=== PATIENT | female | born 1960 | race Caucasian/White ===

== ENCOUNTER → 2017-03-08 | Outpatient (CLI) | payer SELFPAY ==
--- NOTE | 2017-03-14 16:40 | MG ---
HISTORY: SCREENING Comparison: 03/08/2016 FINDINGS: Bilateral CC and MLO projections of the right and left breast were obtained. Dense fibroglandular ti ssue is seen to be present. No significant architectural distortion, mass or clustered microcalcific ations can be observed to suggest malignancy. No skin thickening or nipple retraction is appreciated . No pathological lymphadenopathy can be identified. A biopsy clip is again seen in the left inferi or breast. IMPRESSION: NO RADIOGRAPHIC EVIDENCE OF MALIGNANCY. ACR CATEGORY 2 - benign findings. FOLLOW-UP EXAM 1 YEAR. Diagnostic CAD was utilized and reviewed. * 0 (ZERO) - ASSESSMENT INCOMPLETE; ADDITIONAL IMAGING IS NEEDED. * 1/ (ONE) - NEGATIVE. * 2/II (TWO) - BENIGN FINDINGS. * 3/III (THREE) - PROBABLY BENIGN FINDING; SHORT INTERVAL FOLLOW-UP SUGGESTED. * 4/IV (FOUR) - SUSPICIOUS ABNORMALITY; BIOPSY SHOULD BE CONSIDERED. * 5/V - HIGHLY SUSPICIOUS OF MALIGNANCY; BIOPSY SHOULD BE PERFORMED. A NEGATIVE X-RAY REPORT SHOULD NOT DELAY BIOPSY IF A DOMINANT OR CLINICALLY SUSPICIOUS MASS IS PRESENT; 4 TO 8 PERCENT OF CANCERS ARE NOT IDENTIFIED BY X-RAY. A NEGA TIVE REPORT MAY REINFORCE THE CLINICAL IMPRESSION. ADENOSIS AND DENSE BREASTS MAY OBSCURE AN UNDERLY ING NEOPLASM. Reported By:
== END ==
LOC: RAD 08:53
PROVIDERS: ATTEND Specialist
DX: Z12.31 Encounter for screening mammogram for malignant neoplasm of breast (principal)
CPT/HCPCS: 77067

== ENCOUNTER 2019-01-31 20:37 | Observation (INO) ==
[2019-01-31] MEDS ORDERED: ZOFRAN INJ 4 MG VIAL IVP ONE (21:46)
[2019-01-31] MEDS ORDERED: DILAUDID INJ IVP ONE (21:49)
--- NOTE | 2019-01-31 22:01 | ED.ABDFE ---
HPI Time Seen Time Seen by Provider: 01/31/19 21:42 PCP Primary Care Physician: DR.DONNA FOURNIER Complaint Doctors Chief Complaint Comments: A 58 y/o female presenting with c/o RLQ abdominal pain onset since about 1830 hrs. this evening. "It hurts" is how she characterizes it. The pain has been constant since then, with no radiation. She has nausea but no vomiting. She has no fever. There is no exacerbating or relieving factors. Chief Complaint:: PT STATED SHE IS HAVING RIGHTSIDED ABDOMINAL PAIN AND NAUSEA. Reviewed Nurses Notes Review: Yes Source History Provided: Patient Mode of arrival Mode of Arrival: Wheelchair Timing Onset of Chief Complaint: 01/31/19 Came on: Gradually Duration Since Onset: Constant How lon Duration: Hours Location Location: RLQ Severity Severity: Severe Context History of: Abdominal surgery Modifying factors Worsening Factors: Nothing Improving Factors: Nothing Associated signs and symptoms Associated Signs and Symptoms: Nausea PMH PMH Past Medical History: No Past Surgical History: Yes Past Surgical History Comment: RIGHT INQUINAL HERNIA AND TUBLIGATION Family History History of Family Medical Conditions: No Social History Does patient currently use any type of tobacco product: No Have you used tobacco products in the last 12 months: No Type of Tobacco Use: None Does any household member use tobacco: No Alcohol Use: None Do you use any recreational Drugs:: No Lives With: Spouse Lives Where: Home infectious screening In the last 2 months have you had wt loss of >10#?: NO Have you had fever, night sweats or hemotysis?: No Have you traveled outside the country in the last 6 months?: No Isolation: Standard ROS Review of Systems Constitutional: No Symptoms Reported Eyes: No Symptoms Reported ENTM: No Symptoms Reported Respiratoy: No Symptoms Reported Cardiovascular: No Symptoms Reported Gastrointestinal/Abdominal: Abdominal Pain and Nausea Genitourinary: No Symptoms Reported Neurological: No Symptoms Reported Musculoskeletal: No Symptoms Reported Integumentary: No Symptoms Reported Hematologic/Lymphatic: No Symptoms Reported Endocrine: No Symptoms Reported Psychiatric: No Symptoms Reported PE Vital Signs Vitals: Temperature 97.7 F Pulse Rate 70 Respiratory Rate 18 Blood Pressure [Left Arm] 109/55 Blood Pressure 98/51 O2 Sat by Pulse Oximetry 99 General Limitations: No Limitations General Appearance: Alert and In Distress (pain related) Head Head Exam: Normal Inspection, Atraumatic and Normocephalic Eyes Eye exam: Normal Appearance and EOMI ENT ENT Exam: Normal Exam, Normal Oropharynx and Mucous Membranes Moist Neck Neck Exam: Normal Inspection, Full ROM and Trachea Midline Chest Chest Inspection: Normal Inspection and Symmetric Chest Wall Rise Respiratory Respiratory Exam: Normal Lung Sounds Bilat Cardiovascular Cardiovascular Exam: Regular Rate, Normal Rhythm, Normal Heart Sounds, +S1 and +S2 Abdominal Exam Abdominal Exam: Normal Inspection, Normal Bowel Sounds, Soft and Tenderness; negative Distention, Guarding, Rebound, Rigidity, Dimnished Bowel Sounds, Hyperactive Bowel Sounds, Hypoactive Bowel Sounds, Organomegaly, Trauma, Incision, Ascites, Mass, Bruit, Pulsatile Mass and Hernia Abdominal Tenderness: RLQ Rectal Rectal Exam: Deferred Back Back Exam: Normal Inspection Extremeties Extremities Exam: Normal Inspection and Full ROM External Exam: Female: Deferred Neurologic Neurological Exam: Alert and Oriented X3 Psychiatric Psychiatric Exam: Normal Affect and Normal Mood Skin Skin Exam: Dry and Normal Color MDM Differential Diagnosis Differential Diagnosis- Considerations may include:: Appendicitis, Inflammatory BD and Ovarian cyst/torsion COURSE Reevaluation 1st: Improved 2nd: Improved Education/Counseling Education/Counseling: Patient, Family, Education and Counseling Educated On: Treatment, Diagnosis, Prognosis and Needs for Follow Up ROR Labs Reviewed Laboratory Results Reviewed?: Yes Result Diagrams: 01/31/19 22:02 01/31/19 22:02 Laboratory: WBC 10.2 X10^3/uL (3.6-10.0) H 01/31/19 22:02 RBC 4.45 X10^6/uL (3.5-5.4) 01/31/19 22:02 Hgb 13.8 g/dL (12.0-16.0) 01/31/19 22:02 Hct 39.2 % (36.0-47.0) 01/31/19 22:02 MCV 88.1 fL (80.0-100.0) 01/31/19 22:02 MCH 30.9 pg (27.0-34.0) 01/31/19 22:02 MCHC 35.1 g/dL (33.0-35.0) H 01/31/19 22:02 RDW 12.7 % (11.6-16.5) 01/31/19 22:02 Plt Count 155 X10^3/uL (150.0-450.0) 01/31/19 22:02 Plt Count Comment Adequate (ADEQUATE) 01/31/19 22:02 MPV 7.8 fL (7.4-11.0) 01/31/19 22:02 Neut % (Auto) 90.6 % (42.0-75.0) H 01/31/19 22:02 Lymph % (Auto) 4.5 % (21.0-51.0) L 01/31/19 22:02 [place] % (Auto) 4.4 % (0.0-13.0) 01/31/19 22:02 Eos % (Auto) 0.1 % (0.9-2.9) L 01/31/19 22:02 Baso % (Auto) 0.4 % (0.2-1.0) 01/31/19 22:02 Neut # (Auto) 9.2 x10^3/uL (2.2-4.8) H 01/31/19 22:02 Lymph # (Auto) 0.5 X10^3/uL (1.3-2.9) L 01/31/19 22:02 [place] # (Auto) 0.4 x10^3/uL (0.3-0.8) 01/31/19 22:02 Eos # (Auto) 0.0 x10^3/uL (0.0-0.2) 01/31/19 22:02 Baso # (Auto) 0.0 X10^3/uL (0.0-0.1) 01/31/19 22:02 Absolute Nucleated RBC 0.0 /100WBC 01/31/19 22:02 Total Counted 100 01/31/19 22:02 Neutrophils % (Manual) 84 % (39-76) H 01/31/19 22:02 Band Neutrophils % 7 % (0-10) 01/31/19 22:02 Lymphocytes % (Manual) 4 % (13-43) L 01/31/19 22:02 Monocytes % (Manual) 4 % (4-9) 01/31/19 22:02 Metamyelocytes % 1 01/31/19 22:02 Plt Morphology Comment Normal (NORMAL) 01/31/19 22:02 RBC Morphology Normal (NORMAL) 01/31/19 22:02 Sodium 142 mmol/L (136-145) 01/31/19 22:02 Corrected Sodium 142 mmol/L (136-145) 01/31/19 22:02 Potassium 3.6 mmol/L (3.5-5.1) 01/31/19 22:02 Chloride 106 mmol/L (98-107) 01/31/19 22:02 Carbon Dioxide 27.8 mmol/L (21-32) 01/31/19 22:02 BUN 17 mg/dL (7-18) 01/31/19 22:02 Creatinine 0.94 mg/dL (0.55-1.02) 01/31/19 22:02 Est GFR (MDRD) Af Amer > 60 (>60) 01/31/19 22:02 Est GFR (MDRD) Non-Af > 60 (>60) 01/31/19 22:02 Glucose 120 mg/dL (65-99) H 01/31/19 22:02 Calcium 8.5 mg/dL (8.5-10.1) 01/31/19 22:02 Corrected Calcium TNP 01/31/19 22:02 Total Bilirubin 0.50 mg/dL (0.2-1.0) 01/31/19 22:02 AST 19 Units/L (15-37) 01/31/19 22:02 ALT 26 Units/L (12-78) 01/31/19 22:02 Alkaline Phosphatase 74 Units/L (46-116) 01/31/19 22:02 Total Protein 7.0 g/dL (6.4-8.2) 01/31/19 22:02 Albumin 4.2 g/dL (3.4-5.0) 01/31/19 22:02 Globulin 2.8 g/dL (2.5-4.5) 01/31/19 22:02 Albumin/Globulin Ratio 1.5 Ratio (1.1-2.1) 01/31/19 22:02 XRAY XRAY Interpreted by: Radiologist XRAY Findings: Abd./Pelvic CT Scan: Acute appendicitis. Opioid Opioid Risk Tool Total: 0 Total Score Risk Category: Low Risk Copyright: Gurmeet ZAPIEN predicting aberrant behaviors Diagnosis Discharge Problem: Acute appendicitis Qualifiers: Acute appendicitis type: with localized peritonitis Appendicitis gangrene presence: unspecified whether gangrene present Appendicitis perforation presence: without perforation Appendicitis abscess presence: without abscess Qualified Code(s): K35.30 - Acute appendicitis with localized peritonitis, without perforation or gangrene Instructions Forms: Excuse From Work
[2019-01-31 22:09] LABS: BASOPHILS % (AUTO) 0.4 % (0.2-1.0); EOSINOPHILS % (AUTO) 0.1 % (0.9-2.9); HEMATOCRIT 39.2 % (36.0-47.0); HEMOGLOBIN 13.8 g/dL (12.0-16.0); LYMPHOCYTES # (AUTO) 0.5 X10^3/uL (1.3-2.9); LYMPHOCYTES % (AUTO) 4.5 % (21.0-51.0); MEAN CORPUSCULAR HEMOGLOBIN 30.9 pg (27.0-34.0); MEAN CORPUSCULAR HGB CONC 35.1 g/dL (33.0-35.0); MEAN CORPUSCULAR VOLUME 88.1 fL (80.0-100.0); MEAN PLATELET VOLUME 7.8 fL (7.4-11.0); MONOCYTES # (AUTO) 0.4 x10^3/uL (0.3-0.8); MONOCYTES % (AUTO) 4.4 % (0.0-13.0); NEUTROPHILS # (AUTO) 9.2 x10^3/uL (2.2-4.8); NEUTROPHILS % (AUTO) 90.6 % (42.0-75.0); PLATELET COUNT 155 X10^3/uL (150.0-450.0); RED BLOOD COUNT 4.45 X10^6/uL (3.5-5.4); RED CELL DISTRIBUTION WIDTH 12.7 % (11.6-16.5); WHITE BLOOD COUNT 10.2 X10^3/uL (3.6-10.0)
[2019-01-31 22:27] LABS: ALANINE AMINOTRANSFERASE 26 Units/L (12-78); ALBUMIN 4.2 g/dL (3.4-5.0); ALKALINE PHOSPHATASE 74 Units/L (46-116); ASPARTATE AMINO TRANSFERASE 19 Units/L (15-37); BLOOD UREA NITROGEN 17 mg/dL (7-18); CALCIUM 8.5 mg/dL (8.5-10.1); CARBON DIOXIDE 27.8 mmol/L (21-32); CHLORIDE 106 mmol/L (98-107); COR NA(FOR HYPERGLY) 142 mmol/L (136-145); CREATININE 0.94 mg/dL (0.55-1.02); SODIUM 142 mmol/L (136-145); eGFR NON BLACK RACES > 60 (>60)
[2019-01-31 22:31] LABS: BAND NEUTROPHILS % 7 % (0-10); METAMYELOCYTES % 1
[2019-01-31 22:32] LABS: PLATELET MORPHOLOGY COMMENT NORMAL (NORMAL)
--- NOTE | 2019-02-01 01:25 | CT ---
HISTORY: Pain and nausea Study: CT abdomen and pelvis with contrast Comparison: None Technique: Multiple axial images of the abdomen and pelvis were obtained from the lung bases to the pubic symphysis following the administration of IV contrast. Coronal and sagittal reformations were obtained. Findings: Visualized lung bases are clear. Liver, pancreas, spleen, and adrenals are unremarkable. Gallbladder is unremarkable. Kidneys enhance symmetrically. No evidence of obstructive uropathy. Urinary bladder is unremarkable. Small bowel and colon demonstrate no evidence of mechanical obstruction or inflammation. The appendix is dilated with periappendiceal fat stranding, compatible with appendicitis. No evidence of intraperitoneal free air. No free fluid or focal fluid collection. No acute osseous findings. IMPRESSION: Acute uncomplicated appendicitis. Findings were discussed with Dr. Navarro by phone on 02/01/19 at 1:23 am. Reported By:
[2019-02-01] MEDS ORDERED: DILAUDID INJ IVP PRN ×2 (02:17→10:44)
[2019-02-01] MEDS ORDERED: TYLENOL 325 MG TAB PO PRN (02:17)
[2019-02-01] MEDS ORDERED: ZOFRAN INJ 4 MG VIAL IVP PRN ×2 (02:17→10:44)
[2019-02-01 02:50] VITALS: BMI 29.3
[2019-02-01] MEDS ORDERED: ZOSYN VIAL 2.25 GRAMS IV ONE (02:57)
[2019-02-01] MEDS ORDERED: LR 1000 ML IV 1,000 ML ONE ×3 (02:57→09:22)
[2019-02-01] MEDS ORDERED: NS 100 ML IV + SPIKE MINIBAG* 100 ML ONE (02:58)
[2019-02-01] MEDS: LR 1000 ML IV 1,000 ML IV SCH ×2 (03:06→17:11)
[2019-02-01] MEDS ORDERED: DILAUDID INJ ONE (03:25)
[2019-02-01] MEDS: ZOSYN VIAL 2.25 GRAMS 2.25 G in NS 100 ML IV + SPIKE MINIBAG* 100 ML IV SCH ×3 (05:23→21:58)
[2019-02-01 06:40] LABS: BASOPHILS % (AUTO) 0.2 % (0.2-1.0); HEMATOCRIT 36.4 % (36.0-47.0); HEMOGLOBIN 12.9 g/dL (12.0-16.0); LYMPHOCYTES # (AUTO) 1.1 X10^3/uL (1.3-2.9); LYMPHOCYTES % (AUTO) 11.2 % (21.0-51.0); MEAN CORPUSCULAR HEMOGLOBIN 31.2 pg (27.0-34.0); MEAN CORPUSCULAR HGB CONC 35.3 g/dL (33.0-35.0); MEAN CORPUSCULAR VOLUME 88.4 fL (80.0-100.0); MEAN PLATELET VOLUME 8.2 fL (7.4-11.0); MONOCYTES # (AUTO) 0.5 x10^3/uL (0.3-0.8); MONOCYTES % (AUTO) 5.1 % (0.0-13.0); NEUTROPHILS # (AUTO) 7.9 x10^3/uL (2.2-4.8); NEUTROPHILS % (AUTO) 83.5 % (42.0-75.0); PLATELET COUNT 149 X10^3/uL (150.0-450.0); RED BLOOD COUNT 4.12 X10^6/uL (3.5-5.4); RED CELL DISTRIBUTION WIDTH 12.6 % (11.6-16.5); WHITE BLOOD COUNT 9.5 X10^3/uL (3.6-10.0)
[2019-02-01 06:52] LABS: ALANINE AMINOTRANSFERASE 21 Units/L (12-78); ALBUMIN 3.6 g/dL (3.4-5.0); ALKALINE PHOSPHATASE 61 Units/L (46-116); ASPARTATE AMINO TRANSFERASE 15 Units/L (15-37); BLOOD UREA NITROGEN 13 mg/dL (7-18); CALCIUM 8.1 mg/dL (8.5-10.1); CARBON DIOXIDE 25.6 mmol/L (21-32); CHLORIDE 105 mmol/L (98-107); COR NA(FOR HYPERGLY) 139 mmol/L (136-145); CREATININE 0.85 mg/dL (0.55-1.02); SODIUM 139 mmol/L (136-145); TOTAL PROTEIN 6.4 g/dL (6.4-8.2); eGFR NON BLACK RACES > 60 (>60)
[2019-02-01 08:22] LABS: BILIRUBIN,URINE NEGATIVE (NEGATIVE); BLOOD/HEMOGLOBIN,URINE NEGATIVE (NEGATIVE); GLUCOSE, URINE NEGATIVE (NEGATIVE); KETONES,URINE NEGATIVE (NEGATIVE); LEUKOCYTE ESTERASE ,URINE NEGATIVE (NEGATIVE); NITRITES,URINE NEGATIVE (NEGATIVE); PROTEIN,URINE 2+ (NEGATIVE); UROBILINOGEN,URINE NORMAL (NORMAL)
[2019-02-01 08:29] LABS: APPEARANCE,URINE CLEAR (CLEAR); COLOR,URINE YELLOW (YELLOW)
--- NOTE | 2019-02-01 08:29 | DR.H&P ---
H&P - History & Physical for Day of: H&P Date: 02/01/19 - Chief Complaint Chief Complaint: RIGHT SIDE ABDOMINAL PAIN, N/V - History of Present Illness History of Present Illness: 58 WF ER ADMISSION AFTER PRESENTING WITH CO RLQ abdominal pain onset since about 1830 hrs. this evening. "It hurts" is how she characterizes it. The pain has been constant since then, with no radiation. She has nausea but no vomiting. She has no fever. There is no exacerbating or relieving factors. PT DENIES ANY PMH OF HTN, CAD OR COPD. PT STATES SHE HAS NO HOME MEDICATIONS. PT WAS ADMITTED NPO, IV ZOSYN, SURGICAL CONSULTATION. - Past Medical History Past Medical History: denies: CHF, COPD, Coronary Artery Disease, Diabetes, Dyslipidemia, GERD, Hypertension - Past Surgical History Surgical History: Abdominal Surgery - Social History Does patient currently use any type of tobacco product: No Have you used tobacco products in the last 12 months: No Type of Tobacco Use: None Does any household member use tobacco: No Alcohol Use: None Drug Use: None - Medications Home Medications: No Known Drug Allergies Allergy (Verified 02/01/19 01:33) CONTINUE taking the following medications NK 02/01/19 [History] - Review of Systems Constitutional: Weakness Eyes: No Symptoms Reported ENT: No Symptoms Reported Respiratory: No Symptoms Reported Cardiovascular: No Symptoms Reported Gastrointestinal: Nausea, Vomiting, Abdominal Pain Genitourinary: No Symptoms Reported Musculoskeletal: No Symptoms Reported Skin: No Symptoms Reported Neurological: No Symptoms Reported - Physical Exam Vital Signs: Temperature 100.9 F Pulse Rate [Left] 90 Pulse Rate 70 Respiratory Rate 18 Blood Pressure [Left Arm] 109/54 Blood Pressure 98/51 O2 Sat by Pulse Oximetry 94 Oriented: Normal Eyes: Normal Ear: Normal Nose: Normal Throat: Normal Respiratory: Clear Throughout Cardiovascular: Normal : Normal Auscultation: Bowel Sounds: Normal Tenderness: RLQ, Periumbilical, Moderate, Rebound Skin: Normal Musculoskeletal: Normal Psychiatric: Normal Mood Description: Calm Speech Pattern: Appropriate - Assessment/Plan (1) Acute appendicitis Qualifiers: Acute appendicitis type: with localized peritonitis Appendicitis gangrene presence: unspecified whether gangrene present Appendicitis perforation presence: without perforation Appendicitis abscess presence: without abscess Qualified Code(s): K35.30 - Acute appendicitis with localized peritonitis, without perforation or gangrene Status: Acute Plan: ADMIT, NPO, IV HYDRATION. IV ZOSYN, PAIN AND NAUSEA CONTROL. SURGICAL CONSULTATION - Allergies Allergies/Adverse Reactions: Allergies Allergy/AdvReac Type Severity Reaction Status Date / Time No Known Drug Allergies Allergy Verified 02/01/19 01:33
[2019-02-01 08:30] LABS: BACTERIA,URINE NEGATIVE /HPF (NEGATIVE); RBC,URINE NONE SEEN /HPF (0-3); SQUAMOUS EPITHELIAL CELL,UR FEW /HPF (NEGATIVE)
[2019-02-01] MEDS ORDERED: ANCEF 1 GRAM IV PREMIX* 1 G/50 ML BAG IV ONE (09:20)
[2019-02-01] MEDS ORDERED: MORPHINE SULFATE INJ 10 MG ONE ×2 (09:22→15:10)
[2019-02-01] MEDS ORDERED: DECADRON INJ ONE ×2 (09:22→15:10)
[2019-02-01] MEDS ORDERED: FENTANYL INJ 100 mcg ONE (09:22)
[2019-02-01] MEDS ORDERED: ZEMURON ONE ×2 (09:23→15:10)
[2019-02-01] MEDS ORDERED: BACTROBAN TOPICAL OINT ONE (10:19)
[2019-02-01] MEDS ORDERED: PHENERGAN INJ 25 MG IM PRN (10:44)
[2019-02-01] MEDS ORDERED: REGLAN INJ 10 MG VIAL IVP PRN (10:44)
[2019-02-01] MEDS ORDERED: BENADRYL INJ 50 MG VIAL IVP PRN (10:44)
[2019-02-01] MEDS ORDERED: NS IRRIGATION 3000 ML ONE (12:58)
[2019-02-01] MEDS ORDERED: ROBINUL ONE (15:10)
[2019-02-01] MEDS ORDERED: TORADOL 30 MG VIAL ONE (15:10)
[2019-02-01] MEDS ORDERED: ZOFRAN INJ 4 MG VIAL ONE (15:10)
[2019-02-01] MEDS ORDERED: VERSED ONE (15:10)
[2019-02-01] MEDS ORDERED: NEOSTIGMINE INJ ONE (15:10)
[2019-02-01] MEDS ORDERED: DIPRIVAN VIAL ONE (15:10)
[2019-02-01] MEDS ORDERED: ULTANE GAS ONE (15:10)
[2019-02-01] MEDS ORDERED: XYLOCAINE 2 % (PLAIN) ONE (15:10)
[2019-02-01] MEDS ORDERED: NORCURON INJ 10 MG VIAL ONE (15:10)
[2019-02-01] MEDS ORDERED: QUELICIN (OR ANECTINE) ONE (15:10)
[2019-02-02] MEDS: ZOSYN VIAL 2.25 GRAMS 2.25 G in NS 100 ML IV + SPIKE MINIBAG* 100 ML IV SCH (05:36)
[2019-02-02] MEDS: LR 1000 ML IV 1,000 ML IV SCH (05:36)
[2019-02-02 06:14] LABS: BASOPHILS % (AUTO) 0.4 % (0.2-1.0); EOSINOPHILS % (AUTO) 0.3 % (0.9-2.9); HEMATOCRIT 33.7 % (36.0-47.0); HEMOGLOBIN 11.7 g/dL (12.0-16.0); LYMPHOCYTES # (AUTO) 0.9 X10^3/uL (1.3-2.9); LYMPHOCYTES % (AUTO) 14.2 % (21.0-51.0); MEAN CORPUSCULAR HEMOGLOBIN 31.2 pg (27.0-34.0); MEAN CORPUSCULAR HGB CONC 34.9 g/dL (33.0-35.0); MEAN CORPUSCULAR VOLUME 89.3 fL (80.0-100.0); MEAN PLATELET VOLUME 8.4 fL (7.4-11.0); MONOCYTES # (AUTO) 0.3 x10^3/uL (0.3-0.8); MONOCYTES % (AUTO) 4.6 % (0.0-13.0); NEUTROPHILS # (AUTO) 5.1 x10^3/uL (2.2-4.8); NEUTROPHILS % (AUTO) 80.5 % (42.0-75.0); PLATELET COUNT 116 X10^3/uL (150.0-450.0); RED BLOOD COUNT 3.77 X10^6/uL (3.5-5.4); RED CELL DISTRIBUTION WIDTH 12.5 % (11.6-16.5); WHITE BLOOD COUNT 6.4 X10^3/uL (3.6-10.0)
[2019-02-02 06:25] LABS: ALANINE AMINOTRANSFERASE 24 Units/L (12-78); ALBUMIN 3.1 g/dL (3.4-5.0); ALKALINE PHOSPHATASE 49 Units/L (46-116); ASPARTATE AMINO TRANSFERASE 24 Units/L (15-37); BLOOD UREA NITROGEN 12 mg/dL (7-18); CALCIUM 8.4 mg/dL (8.5-10.1); CARBON DIOXIDE 26.1 mmol/L (21-32); CHLORIDE 109 mmol/L (98-107); COR CA(FOR HYPOALB) 9.1 mg/dL (8.5-10.1); SODIUM 141 mmol/L (136-145); eGFR NON BLACK RACES > 60 (>60)
--- NOTE | 2019-02-02 08:53 | DR.PROGNOT ---
Hospital Progress Notes - Progress Note for Day of: Progress Note Date: 02/02/19 - Chief Complaint Chief Complaint: feeling better , s/p lap appendectomy . afebrile , OOB . ambulatory . - Past Medical Family Social History Past Med/Fam/Surg Hx: No changes since H&P Allergies: Allergies No Known Drug Allergies Allergy (Verified 02/01/19 01:33) - Review Of Systems ROS: No change since H&P - Vital Signs Vital Signs: Temperature 98.0 F Pulse Rate [Left] 70 Pulse Rate 61 Respiratory Rate 16 Blood Pressure [Left Arm] 108/56 Blood Pressure 127/60 O2 Sat by Pulse Oximetry 99 - Physical Exam Oriented: Normal Eyes: Normal Ear: Normal Nose: Normal Throat: Normal Cardiovascular: Normal : Normal GI:Auscultation: Normal GI:Palpation: Normal GI: Tenderness: Diffuse (soft ,flat abdomen , BS+ ), Rebound Skin: Normal Musculoskeletal: Normal Psychiatric: Normal Mood Description: Calm Speech Pattern: Clear, Appropriate - Laboratory and Diagnostics Result Diagrams: 02/02/19 05:45 02/02/19 05:45 Labs: Laboratory WBC 6.4 X10^3/uL (3.6-10.0) 02/02/19 05:45 RBC 3.77 X10^6/uL (3.5-5.4) 02/02/19 05:45 Hgb 11.7 g/dL (12.0-16.0) L 02/02/19 05:45 Hct 33.7 % (36.0-47.0) L 02/02/19 05:45 MCV 89.3 fL (80.0-100.0) 02/02/19 05:45 MCH 31.2 pg (27.0-34.0) 02/02/19 05:45 MCHC 34.9 g/dL (33.0-35.0) 02/02/19 05:45 RDW 12.5 % (11.6-16.5) 02/02/19 05:45 Plt Count 116 X10^3/uL (150.0-450.0) L 02/02/19 05:45 Plt Count Comment Adequate (ADEQUATE) 01/31/19 22:02 MPV 8.4 fL (7.4-11.0) 02/02/19 05:45 Neut % (Auto) 80.5 % (42.0-75.0) H 02/02/19 05:45 Lymph % (Auto) 14.2 % (21.0-51.0) L 02/02/19 05:45 [place] % (Auto) 4.6 % (0.0-13.0) 02/02/19 05:45 Eos % (Auto) 0.3 % (0.9-2.9) L 02/02/19 05:45 Baso % (Auto) 0.4 % (0.2-1.0) 02/02/19 05:45 Neut # (Auto) 5.1 x10^3/uL (2.2-4.8) H 02/02/19 05:45 Lymph # (Auto) 0.9 X10^3/uL (1.3-2.9) L 02/02/19 05:45 [place] # (Auto) 0.3 x10^3/uL (0.3-0.8) 02/02/19 05:45 Eos # (Auto) 0.0 x10^3/uL (0.0-0.2) 02/02/19 05:45 Baso # (Auto) 0.0 X10^3/uL (0.0-0.1) 02/02/19 05:45 Absolute Nucleated RBC 0.1 /100WBC 02/02/19 05:45 Total Counted 100 01/31/19 22:02 Neutrophils % (Manual) 84 % (39-76) H 01/31/19 22:02 Band Neutrophils % 7 % (0-10) 01/31/19 22:02 Lymphocytes % (Manual) 4 % (13-43) L 01/31/19 22:02 Monocytes % (Manual) 4 % (4-9) 01/31/19 22:02 Metamyelocytes % 1 01/31/19 22:02 Plt Morphology Comment Normal (NORMAL) 01/31/19 22:02 RBC Morphology Normal (NORMAL) 01/31/19 22:02 Sodium 141 mmol/L (136-145) 02/02/19 05:45 Corrected Sodium TNP 02/02/19 05:45 Potassium 4.3 mmol/L (3.5-5.1) 02/02/19 05:45 Chloride 109 mmol/L (98-107) H 02/02/19 05:45 Carbon Dioxide 26.1 mmol/L (21-32) 02/02/19 05:45 BUN 12 mg/dL (7-18) 02/02/19 05:45 Creatinine 0.80 mg/dL (0.55-1.02) 02/02/19 05:45 Est GFR (MDRD) Af Amer > 60 (>60) 02/02/19 05:45 Est GFR (MDRD) Non-Af > 60 (>60) 02/02/19 05:45 Glucose 106 mg/dL (65-99) H 02/02/19 05:45 Calcium 8.4 mg/dL (8.5-10.1) L 02/02/19 05:45 Corrected Calcium 9.1 mg/dL (8.5-10.1) 02/02/19 05:45 Total Bilirubin 0.60 mg/dL (0.2-1.0) 02/02/19 05:45 AST 24 Units/L (15-37) 02/02/19 05:45 ALT 24 Units/L (12-78) 02/02/19 05:45 Alkaline Phosphatase 49 Units/L (46-116) 02/02/19 05:45 Total Protein 6.0 g/dL (6.4-8.2) L 02/02/19 05:45 Albumin 3.1 g/dL (3.4-5.0) L 02/02/19 05:45 Globulin 2.9 g/dL (2.5-4.5) 02/02/19 05:45 Albumin/Globulin Ratio 1.1 Ratio (1.1-2.1) 02/02/19 05:45 Specimen Type Random urine 02/01/19 07:59 Urine Color Yellow (YELLOW) 02/01/19 07:59 Urine Appearance Clear (CLEAR) 02/01/19 07:59 Urine pH 6.0 (5.0 - 8.0) 02/01/19 07:59 Ur Specific [place] 1.010 (1.000-1.030) 02/01/19 07:59 Urine Protein 2+ (NEGATIVE) 02/01/19 07:59 Urine Glucose (UA) Negative (NEGATIVE) 02/01/19 07:59 Urine Ketones Negative (NEGATIVE) 02/01/19 07:59 Urine Occult Blood Negative (NEGATIVE) 02/01/19 07:59 Urine Nitrite Negative (NEGATIVE) 02/01/19 07:59 Urine Bilirubin Negative (NEGATIVE) 02/01/19 07:59 Urine Urobilinogen Normal (NORMAL) 02/01/19 07:59 Ur Leukocyte Esterase Negative (NEGATIVE) 02/01/19 07:59 Urine RBC None seen /HPF (0-3) 02/01/19 07:59 Urine WBC 0-2 /HPF (0-5) 02/01/19 07:59 Ur Squamous Epith Cells Few /HPF (NEGATIVE) 02/01/19 07:59 Urine Bacteria Negative /HPF (NEGATIVE) 02/01/19 07:59 Ur Culture Indicated? No/not indicated 02/01/19 07:59 Tissue Pathology To follow 02/01/19 10:30 - Assessment and Plan 1: post op lap appendectomy for acute appendicitis. will d/c and follow in 10 dfays . - Problem Patient Problems: Patient Problems Acute appendicitis (Acute) K35.80
[2019-02-02 12:29] VITALS: BP 115/55
== END 2019-02-02 11:20 | disposition home or self-care (01) ==
LOC: ER 20:37 → MED/SURG 20:37
PROVIDERS: ADMIT Internal Medicine; ATTEND Internal Medicine
PROC: APPYLAP (ICD-10-PCS; 2019-02-01 09:45)
DX: K35.30 Acute appendicitis with localized peritonitis, without perforation or gangrene; R10.31 Right lower quadrant pain
CPT/HCPCS: 36415; 74177; 80053; 81001; 85025; 93005; 94760; 96367; 96374; 96375; 99284; A4222; G0378; J0330; J0690; J1100; J1170; J1885; J2250; J2270; J2405; J2543; J2704; J2710; J3010; J3490; J7050; J7120